=== PATIENT | male | born 1970 | race American Indian/Alaskan Native ===

== ENCOUNTER 2017-01-02 08:51 | Day surgery (SDC) | payer MEDICAID ==
[~2017-01-02 08:51] MED LIST: ANCEF/STERILE WATER 2 GM/20 ML IV NR; FLAGYL/NS 1000 MG-200 ML 500 MG in VIAFLEX EMPTY CONTAINER 1 ML IV ONE
[2017-01-02] MEDS ORDERED: NACL BACTERIOSTATIC INFILTRATI ONE (09:23)
--- NOTE | 2017-01-02 09:29 | Anesthesia Day of Surgery ---
Anesthesia Day of Surgery - Day of Surgery Patient Examined: Yes Patient H&P Reviewed: Yes Patient is NPO: Yes
--- NOTE | 2017-01-02 09:29 | Anesthesia Consultation ---
Anesthesia Consult and Med Hx Date of service: 01/02/17 - Airway Anesthetic Teeth Evaluation: Good ROM Head & Neck: Adequate Mental/Hyoid Distance: Adequate Mallampati Class: Class II Intubation Access Assessment: Probably Good - Pulmonary Exam CTA: Yes - Cardiac Exam Cardiac Exam: RRR - Pre-Operative Health Status ASA Pre-Surgery Classification: ASA2 Proposed Anesthetic Plan: General - Pulmonary Hx Smoking: Yes (20years ago for 5 years (1/2 pack a day)) - Central Nervous System Hx Back Pain: Yes Hx Psychiatric Problems: Yes - Other Systems Hx Alcohol Use: Yes (occas.) Hx Substance Use: No Hx Cancer: No
[2017-01-02] MEDS ORDERED: PERCOCET 5/325 PO PRN (09:30)
[2017-01-02] MEDS ORDERED: XYLOCAINE MPF 2% ONE (09:41)
[2017-01-02] MEDS ORDERED: DIPRIVAN 10 MG/ML IV ONE (09:41)
[2017-01-02] MEDS ORDERED: DECADRON ONE (09:41)
[2017-01-02] MEDS ORDERED: ZEMURON IV ONE (09:42)
[2017-01-02] MEDS ORDERED: SUBLIMAZE ONE (09:42)
[2017-01-02] MEDS ORDERED: ZOFRAN ONE (09:42)
[2017-01-02] MEDS ORDERED: QUELICIN ONE (09:44)
[2017-01-02] MEDS ORDERED: LACTATED RINGERS 1,000 ML IV SCH (10:00)
[2017-01-02] MEDS ORDERED: FLAGYL 500 MG/100 ML 500 MG/100 ML BAG IV NR (10:00)
[2017-01-02] MEDS ORDERED: PEPCID PO NR (10:00)
[2017-01-02] MEDS ORDERED: VERSED IV NR (10:00)
[2017-01-02] MEDS ORDERED: MARCAINE 0.5% INFILTRATI ONE ×3 (10:12→10:36)
[2017-01-02] MEDS ORDERED: NACL 0.9% IR ONE (10:36)
[2017-01-02] MEDS ORDERED: ROBINUL ONE (10:55)
--- NOTE | 2017-01-02 11:04 | Post Operative Note ---
Pre-op diagnosis: Bleeding internal hemorrhoids Post-op diagnosis: same Findings: 3rd degree hemorrhoids Procedure: Trans anal doppler guided hemorrhoidal ligation Anesthesia: GETA Surgeon: GREG LINARES Estimated blood loss: minimal Pathology: none Condition: stable Disposition: PACU
--- NOTE | 2017-01-02 11:07 | Discharge Summary ---
Short Stay Discharge Plan Weight Bearing Status: Full Weight Bearing Diet: regular Wound: change dressing (tomorrow am, start Sitzs baths tid ) Follow up with: REJI AMARAL MD [Primary Care Provider] - 7 Days Prescriptions: Docusate Sodium [Colace] 100 mg PO BID PRN #30 capsule PRN Reason: Constipation Ketorolac [Toradol] 10 mg PO Q6H PRN #20 tablet PRN Reason: Pain oxyCODONE /ACETAMINOPHEN [Percocet 5/325] 1 tab PO Q4HR PRN #20 tab PRN Reason: Pain , Severe (7-10)
--- NOTE | 2017-01-02 11:11 | Discharge Summary ---
Short Stay Discharge Plan Follow up with: REJI AMARAL MD [Primary Care Provider] - 7 Days Prescriptions: Docusate Sodium [Colace] 100 mg PO BID PRN #30 capsule PRN Reason: Constipation Ketorolac [Toradol] 10 mg PO Q6H PRN #20 tablet PRN Reason: Pain oxyCODONE /ACETAMINOPHEN [Percocet 5/325] 1 tab PO Q4HR PRN #20 tab PRN Reason: Pain , Severe (7-10)
[2017-01-02] MEDS: DILAUDID IV PRN ×3 (11:20→12:05)
--- NOTE | 2017-01-02 11:40 | Post Anesthesia Evaluation ---
- Post Anesthesia Evaluation Patient Participated: Yes Airway Patent: Yes Stable Respiratory Function: Yes Temp > 96.8F: Yes Pain Manageable: Yes Adequeate Hydration: Yes Anesthesia Complications: No
[2017-01-02] MEDS ORDERED: TORADOL IV PRN (12:00)
--- NOTE | 2017-01-02 12:38 | Operative Report ---
PREOPERATIVE DIAGNOSIS: Grade 3 bleeding internal hemorrhoids. POSTOPERATIVE DIAGNOSIS: Grade 3 bleeding internal hemorrhoids. OPERATIVE PROCEDURE: Transanal Doppler-guided hemorrhoidal ligation. ANESTHESIA: General endotracheal. SURGEON: Alin Sellers MD INDICATIONS: A 46-year-old male patient with several years' history of bleeding internal hemorrhoids that is progressively worsening, not responding to medical measures. FINDINGS: Grade 3 hemorrhoids at 3 o'clock, 7 o'clock, and 11 o'clock position. No thrombosis evident. No fissure or fistula evident. DESCRIPTION OF PROCEDURE: After satisfactory induction of general endotracheal anesthesia on the stretcher the patient was transferred to the operating table with appropriate protected devices. Operative area prepped and draped after the gluteal folds and taping them. Coccygeal block with 0.5% Marcaine was given. The Doppler was well lubricated and inserted into the anal canal and Doppler signals were obtained at 1 o'clock, 3 o'clock, 5 o'clock, 7 o'clock and 9 o'clock position. The 11 o'clock Doppler signal could not be obtained. After obtaining signals at each location, a transfixing suture with 2-0 Vicryl was made and ligated. This suture was down to the dentate ligament and was ligated to the originally placed transfixing suture. This was repeated in all other locations. Minimal bleeding was encountered and hemostasis was adequate. No active bleeding was noted towards the completion of the procedure. Gelfoam lubricated well with jelly was placed in the anal canal and dry occlusive dressings were placed and he tolerated the procedure well. JOB# [id number] MNN/NTS
[2017-01-02 13:18] VITALS: BP 118/71
== END 2017-01-02 13:30 | disposition home or self-care (01) ==
LOC: OR 08:51
PROVIDERS: ATTEND Surgery
DX: K64.2 Third degree hemorrhoids (principal); F32.9 Major depressive disorder, single episode, unspecified; Z87.891 Personal history of nicotine dependence; Z98.890 Other specified postprocedural states
CPT/HCPCS: 0249T; J0330; J0690; J1100; J1170; J1885; J2250; J2704; J3010; J7120; J2405

== ENCOUNTER 2017-01-17 07:37 | Emergency (ER) | payer MEDICAID ==
[2017-01-17] MEDS ORDERED: NACL 0.9% 1000 ML 1,000 ML IV ONE (07:46)
[2017-01-17 08:35] LABS: Basophils % (Auto) 0.6 % (0.0-1.8); Eosinophils % (Auto) 1.3 % (0.0-4.3); Hematocrit 41.1 % (35.5-45.6); Hemoglobin 13.4 gm/dl (11.8-15.2); Mean Corpuscular HGB Conc 33 % (32-34); Mean Corpuscular Hemoglobin 29 pg (28-32); Mean Corpuscular Volume 87 fl (84-94); Platelet Count 250 K/mm3 (140-440); Red Cell Distribution Width 13.8 % (13.2-15.2)
[2017-01-17 08:45] LABS: INR 0.93 (0.87-1.13)
[2017-01-17 08:46] LABS: Partial Thromboplastin Time 29.7 Sec. (24.2-36.6)
[2017-01-17 08:56] LABS: Alanine Aminotransferase 23 units/L (7-56); Albumin 4.1 g/dL (3.9-5); Albumin/Globulin Ratio 1.4 %; Alkaline Phosphatase 68 units/L (35-129); Anion Gap 17 mmol/L; BUN/Creatinine Ratio 13; Blood Urea Nitrogen 16 mg/dL (9-20); Calcium 8.8 mg/dL (8.4-10.2); Carbon Dioxide 24 mmol/L (22-30); Chloride 105.4 mmol/L (98-107); Glucose 110 mg/dL (75-100); Lipase 23 units/L (13-60); Potassium 4.3 mmol/L (3.6-5.0); Sodium 142 mmol/L (137-145)
--- NOTE | 2017-01-17 10:13 | Emergency Department Report ---
ED GI Bleed HPI - General Chief complaint: GI Bleed Stated complaint: HEMMERRHOIDS BLEEDING Time Seen by Provider: 01/17/17 10:12 Source: patient Mode of arrival: Ambulatory Limitations: No Limitations - History of Present Illness Initial comments: The patient is status post internal hemorrhoidectomy at the end of last month. Patient states that he's had minimal rectal bleeding since his surgery but today he had substantial hematochezia. He denies any dizziness or weakness. He states he does not know if he is bleeding now. However, on exam there was a small piece of tissue paper and minimal blood but certainly no active bleeding. In any case the patient is somewhat convinced that he needs emergency sutures for treatment of his condition. He does not recall the name of the surgeon and didn't notify them. He states he came to this facility because it's too far to travel to the surgeon's office. MD complaint: gross hematochezia (a moderate quantity or less I believe) -: minutes(s) Radiation: none Quality: painless Consistency: now resolved (was resolved on examination) Improves with: none Worsens with: none Context: other (internal hemorrhoids) Associated Symptoms: denies other symptoms - Related Data Home Medications Medication Instructions Recorded Confirmed Last Taken Acetaminophen [Tylenol Extra 800 mg PO PRN PRN 12/25/16 12/25/16 12/26/16 Strength] Tamsulosin [Flomax] 0.4 mg PO DAILY 12/25/16 12/25/16 12/26/16 Previous Rx's Medication Instructions Recorded Last Taken Type Docusate Sodium [Colace] 100 mg PO BID PRN #30 capsule 01/02/17 Unknown Rx Ketorolac [Toradol] 10 mg PO Q6H PRN #20 tablet 01/02/17 Unknown Rx oxyCODONE /ACETAMINOPHEN [Percocet 1 tab PO Q4HR PRN #20 tab 01/02/17 Unknown Rx 5/325] Allergies Allergy/AdvReac Type Severity Reaction Status Date / Time No Known Allergies Allergy Verified 12/25/16 13:32 ED Review of Systems ROS: Stated complaint: HEMMERRHOIDS BLEEDING Other details as noted in HPI Constitutional: denies: chills, fever Eyes: denies: eye pain, eye discharge, vision change ENT: denies: ear pain, throat pain Respiratory: denies: cough, shortness of breath, wheezing Cardiovascular: denies: chest pain, palpitations Endocrine: no symptoms reported Gastrointestinal: hematochezia. denies: abdominal pain, nausea, diarrhea Genitourinary: denies: urgency, dysuria Musculoskeletal: denies: back pain, joint swelling, arthralgia Skin: denies: rash, lesions Neurological: denies: headache, weakness, paresthesias Psychiatric: denies: anxiety, depression Hematological/Lymphatic: denies: easy bleeding, easy bruising ED Past Medical Hx - Past Medical History Previous Medical History?: Yes Hx Kidney Stones: Yes Hx HIV: No Additional medical history: Hemorhoids - Surgical History Past Surgical History?: Yes Additional Surgical History: Hemorhoidectomy - Social History Smoking Status: Former Smoker Substance Use Type: Alcohol, Prescribed - Medications Home Medications: Home Medications Medication Instructions Recorded Confirmed Last Taken Type Acetaminophen [Tylenol Extra 800 mg PO PRN PRN 12/25/16 12/25/16 12/26/16 History Strength] Tamsulosin [Flomax] 0.4 mg PO DAILY 12/25/16 12/25/16 12/26/16 History Docusate Sodium [Colace] 100 mg PO BID PRN #30 capsule 01/02/17 Unknown Rx Ketorolac [Toradol] 10 mg PO Q6H PRN #20 tablet 01/02/17 Unknown Rx oxyCODONE /ACETAMINOPHEN [Percocet 1 tab PO Q4HR PRN #20 tab 01/02/17 Unknown Rx 5/325] ED Physical Exam - General Limitations: No Limitations General appearance: alert, in no apparent distress - Head Head exam: Present: atraumatic, normocephalic - Eye Eye exam: Present: normal appearance - ENT ENT exam: Present: mucous membranes moist - Neck Neck exam: Present: normal inspection - Respiratory Respiratory exam: Present: normal lung sounds bilaterally. Absent: respiratory distress - Cardiovascular Cardiovascular Exam: Present: regular rate, normal rhythm. Absent: systolic murmur, diastolic murmur, rubs, gallop - GI/Abdominal GI/Abdominal exam: Present: soft, normal bowel sounds. Absent: distended, tenderness, guarding, rebound, rigid - Rectal Rectal exam: Present: other (inspection showed essentially a normal anus a small wide of tissue paper with blood on it. No evidence of any acute bleeding) - Extremities Exam Extremities exam: Present: normal inspection - Back Exam Back exam: Present: normal inspection - Neurological Exam Neurological exam: Present: alert, oriented X3, CN II-XII intact. Absent: motor sensory deficit - Psychiatric Psychiatric exam: Present: normal affect, normal mood - Skin Skin exam: Present: warm, dry, intact, normal color. Absent: rash ED Course Vital Signs 01/17/17 01/17/17 01/17/17 07:42 08:27 08:32 Temperature 98.1 F Pulse Rate 101 H 82 Respiratory 20 15 Rate Blood Pressure 131/92 O2 Sat by Pulse 97 98 97 Oximetry - Reevaluation(s) Reevaluation #1: I spoke with Dr. Collins. He stated that the patient could wait until he is free to be examined. Alternatively he could be seen by Dr. Sellers in the office this afternoon. I presented these options to the patient. He stated it was simply too far for him to drive to get to the office. Dr. Collins will be notified. 01/17/17 11:53 ED Medical Decision Making - Lab Data Result diagrams: 01/17/17 08:22 01/17/17 08:22 Laboratory Results - last 24 hr 01/17/17 01/17/17 01/17/17 08:22 08:22 08:22 WBC 10.0 RBC 4.70 Hgb 13.4 Hct 41.1 MCV 87 MCH 29 MCHC 33 RDW 13.8 Plt Count 250 Lymph % (Auto) 24.9 [place] % (Auto) 8.8 H Eos % (Auto) 1.3 Baso % (Auto) 0.6 Lymph # 2.5 [place] # 0.9 H Eos # 0.1 Baso # 0.1 Seg Neutrophils % 64.4 Seg Neutrophils # 6.4 PT 12.9 INR 0.93 APTT 29.7 Sodium 142 Potassium 4.3 Chloride 105.4 Carbon Dioxide 24 Anion Gap 17 BUN 16 Creatinine 1.2 Estimated GFR > 60 BUN/Creatinine Ratio 13 Glucose 110 H Calcium 8.8 Total Bilirubin 0.40 AST 14 ALT 23 Alkaline Phosphatase 68 Total Protein 7.0 Albumin 4.1 Albumin/Globulin Ratio 1.4 Lipase 23 Blood Type Antibody Screen 01/17/17 08:22 WBC RBC Hgb Hct MCV MCH MCHC RDW Plt Count Lymph % (Auto) [place] % (Auto) Eos % (Auto) Baso % (Auto) Lymph # [place] # Eos # Baso # Seg Neutrophils % Seg Neutrophils # PT INR APTT Sodium Potassium Chloride Carbon Dioxide Anion Gap BUN Creatinine Estimated GFR BUN/Creatinine Ratio Glucose Calcium Total Bilirubin AST ALT Alkaline Phosphatase Total Protein Albumin Albumin/Globulin Ratio Lipase Blood Type O POSITIVE Antibody Screen Negative Critical care attestation.: If time is entered above; I have spent that time in minutes in the direct care of this critically ill patient, excluding procedure time. ED Disposition Clinical Impression: Hematochezia, Status post hemorrhoidectomy Disposition: TO HOME OR SELFCARE Is pt being admited?: No Does the pt Need Aspirin: No Condition: Stable Instructions: Rectal Bleeding (ED), Hemorrhoidectomy (ED) Additional Instructions: Further care per your surgeon. Referrals: PRIMARY CARE, [Primary Care Provider] - 3-5 Days Forms: Accompanied Note Time of Disposition: 11:55
[2017-01-17] MEDS ORDERED: ULTRAM PO ONE (13:11)
[2017-01-17 14:06] VITALS: BP 118/72
--- NOTE | 2017-01-18 08:02 | Consultation ---
HISTORY OF PRESENT ILLNESS: The patient is a 46-year-old gentleman who had a hemorrhoid surgery by Dr. Sellers on 01/02/2017. He followed up in the office approximately 10 days later and was doing well. He presented to the ER at [facility] with some blood per rectum that has subsequently stopped. The ER laura a CBC and he has normal H and H. His vital signs are completely within normal limits. He has no more bleeding, but he insists upon being seen while in the ER. I came and examined him. The anus and rectum are normal. Digital exam reveals some tightness on the inside and tenderness, but no blood on digital exam. No obvious fissures, fistulas, abscesses, or other pathology is seen. IMPRESSION: The patient had some postoperative oozing most likely from the suture line. This was explained to him that he will not from this process and that a little bit of blood in stool could be expected. He requested narcotics. I informed him that narcotics would not be a good idea at this time. He should not be taking any more narcotics for this problem, this going to become a problem with constipation. I recommend that he take [id number] nonsteroidals like Tylenol, Advil, or Motrin if he has any discomfort that needs oral medication. For some external use, I told him he can use [id number] products which he did not want to do and so he got a script for some Emla cream for some external irritation. He was also told to make sure he follows in our office not in the ER in the future for issues like this and he can simply call our office if he has any questions. He has our contact information and he accepted all this information well and will then leave the ER and follow up as needed. Thank you very much. JOB# [id number] JORGE/PRINCE CHIU
== END 2017-01-17 14:06 | disposition home or self-care (01) ==
LOC: ED 07:37
DX: K92.1 Melena (principal); Z98.890 Other specified postprocedural states
CPT/HCPCS: 36415; 80053; 83690; 85025; 85610; 85730; 86850; 86900; 86901; 93005; 93010; 96360; 96361; 99284; J7030